=== PATIENT | male | born 1980 | race Two or more races ===

== ENCOUNTER 2021-01-07 17:50 | Emergency (ER) | payer OTHER ==
[~2021-01-07] VITALS: Ht 154.9 cm; Wt 71.0 kg
[2021-01-07 18:32] VITALS: BP 128/87
== END 2021-01-07 18:38 | disposition home or self-care (01) ==
LOC: ER 18:12
DX: Z00.00 Encounter for general adult medical examination without abnormal findings (principal); F12.10 Cannabis abuse, uncomplicated; F17.210 Nicotine dependence, cigarettes, uncomplicated; Z88.6 Allergy status to analgesic agent
CPT/HCPCS: 99283